=== PATIENT | male | born 1955 | race Caucasian/White ===

== ENCOUNTER 2021-04-19 15:00 | Outpatient (CLI) | payer OTHER | END 2021-04-19 15:40 | disposition home or self-care (01) | LOC: PPH VACUNA 15:00 | DX: Z23 Encounter for immunization (principal) ==

== ENCOUNTER 2021-09-28 08:14 | Outpatient (CLI) | payer OTHER | END 2021-09-28 08:23 | disposition home or self-care (01) | LOC: RAD 08:14 | PROVIDERS: ATTEND Specialist | DX: I10 Essential (primary) hypertension (principal); R05.8 Other specified cough; J34.2 Deviated nasal septum; J34.89 Other specified disorders of nose and nasal sinuses; J01.31 Acute recurrent sphenoidal sinusitis ==

== ENCOUNTER 2021-10-21 07:20 | Outpatient (CLI) | payer OTHER | END 2021-10-21 07:30 | disposition home or self-care (01) | LOC: SONOGRAMA 07:20 | DX: K73.2 Chronic active hepatitis, not elsewhere classified (principal) ==

== ENCOUNTER 2022-09-01 07:27 | Outpatient (CLI) | payer OTHER | END 2022-09-01 07:28 | disposition home or self-care (01) | LOC: LAB 07:27 | DX: D69.6 Thrombocytopenia, unspecified (principal); E78.00 Pure hypercholesterolemia, unspecified; E30.0 Delayed puberty; E03.8 Other specified hypothyroidism ==